=== PATIENT | female | born 1990 | race Caucasian/White ===

== ENCOUNTER 2016-10-08 16:33 | Emergency (ER) | payer MEDICAID ==
[~2016-10-08] VITALS: Ht 172.7 cm; Wt 67.3 kg
[~2016-10-08 16:33] MED LIST: ACET-1757 PO; DOCU-30 PO; IBUP-1222 PO
[2016-10-08] MEDS ORDERED: ONDANSETRON ODT 4 MG PO ONE (17:00)
[2016-10-08] MEDS ORDERED: KETOROLAC 30 MG/1 ML ONE (17:08)
[2016-10-08] MEDS ORDERED: ONDANSETRON ODT 4 MG ONE (17:08)
[2016-10-08] MEDS: KETOROLAC 30 MG/1 ML IM ONE ×2 (17:12→17:15)
[2016-10-08 18:10] VITALS: BP 133/84
== END 2016-10-08 19:15 | disposition home or self-care (01) ==
LOC: ED 19:00
DX: R51 Headache (principal); F17.200 Nicotine dependence, unspecified, uncomplicated
CPT/HCPCS: 70450; 96372; 99284; J1885; Q0162

== ENCOUNTER 2019-10-09 18:58 | Emergency (ER) | payer SELFPAY ==
[~2019-10-09] VITALS: Ht 175.3 cm; Wt 57.9 kg
[~2019-10-09 18:58] MED LIST changes: -ACET-1757 PO; +ACET-2065 PO; +DOCU-131 PO; -DOCU-30 PO
[2019-10-09 19:01] VITALS: BP 145/81
--- NOTE | 2019-10-09 19:07 | NUR ---
PT TO ED WITH DENTAL PAIN, REPORTS ABCESS, FINISHED CLINDAMYCIN PRESCRIPTION YESTERDAY. UNABLE TO ESTABLISH CARE WITH DENTIST. DENIES ANY OTHER MEDICAL C/O AT THIS TIME.
[2019-10-09] MEDS ORDERED: IBUPROFEN 600 MG TABLET ONE (19:11)
[2019-10-09] MEDS ORDERED: ACETAMINOPHEN 325 MG TABLET ONE (19:11)
[2019-10-09] MEDS ORDERED: IBUPROFEN 600 MG TABLET PO ONE (19:30)
[2019-10-09] MEDS ORDERED: ACETAMINOPHEN 325 MG TABLET PO ONE (19:30)
== END 2019-10-09 19:27 | disposition home or self-care (01) ==
LOC: ED 19:21
DX: K02.9 Dental caries, unspecified (principal); K08.89 Other specified disorders of teeth and supporting structures
CPT/HCPCS: 99283

== ENCOUNTER 2019-12-14 02:38 | Emergency (ER) | payer SELFPAY ==
[~2019-12-14] VITALS: Ht 175.3 cm; Wt 55.7 kg
--- NOTE | 2019-12-14 02:49 | NUR ---
PT CAME INTO ED THIS EVENING FOR DENTAL PAIN ON THE RIGHT BOTTOM SIDE OF MOUTH. PT REPORTS IT STARTED A LITTLE WHILE AGO. TOOK 800 MG IBUPROFEN AT HOME. PT DENIES ANY VISION CHANGES OR LOSS OF FEELING. PT NAD, SITTING UP ON ALBERT SOPHY. SADAF DANIELS AT FOR EVAL AND POC.
[2019-12-14] MEDS ORDERED: HYDROcodone/APAP 5/325 TABLET PO ONE (03:00)
[2019-12-14] MEDS ORDERED: CLINDAMYCIN 300 MG CAPSULE PO ONE (03:00)
[2019-12-14] MEDS ORDERED: HYDROcodone/APAP 5/325 TABLET ONE (03:02)
[2019-12-14] MEDS ORDERED: CLINDAMYCIN 300 MG CAPSULE ONE (03:02)
--- NOTE | 2019-12-14 03:04 | NUR ---
PT MEDICATED PER MIRLANDE, NAD, APPEARS COMFORTABLE, WCTM.
[2019-12-14 03:27] VITALS: BP 126/66
--- NOTE | 2019-12-14 03:28 | NUR ---
Patient given discharge instructions and they have confirmed that they understand the instructions. Patient ambulatory with steady gait. provided resources to obtain medications and dental referral list. pt nad, denies additional questions or needs.
== END 2019-12-14 03:29 | disposition home or self-care (01) ==
LOC: ED 03:04
DX: K08.89 Other specified disorders of teeth and supporting structures (principal); F17.200 Nicotine dependence, unspecified, uncomplicated
CPT/HCPCS: 99283